=== PATIENT | male | born 1970 | race Hispanic/Latino ===

== ENCOUNTER 2018-11-22 14:55 | Outpatient (RCR) | payer OTHER | END 2018-11-24 | LOC: PT 14:55 | PROVIDERS: ATTEND Specialist | DX: S33.5XXA Sprain of ligaments of lumbar spine, initial encounter (principal) ==

== ENCOUNTER 2018-12-23 14:43 | Outpatient (RCR) | payer OTHER | END 2018-12-24 | LOC: PT 14:43 | PROVIDERS: ATTEND Specialist | DX: S33.5XXA Sprain of ligaments of lumbar spine, initial encounter (principal); S33.9XXD Sprain of unspecified parts of lumbar spine and pelvis, subsequent encounter; R26.2 Difficulty in walking, not elsewhere classified; M62.81 Muscle weakness (generalized); M53.86 Other specified dorsopathies, lumbar region ==

== ENCOUNTER → 2019-01-24 | Outpatient (RCR) | payer OTHER | LOC: PT 12-26 16:00 | PROVIDERS: ATTEND Specialist | DX: S33.5XXA Sprain of ligaments of lumbar spine, initial encounter (principal); S33.9XXD Sprain of unspecified parts of lumbar spine and pelvis, subsequent encounter; M53.86 Other specified dorsopathies, lumbar region; R26.2 Difficulty in walking, not elsewhere classified; M62.81 Muscle weakness (generalized) ==

== ENCOUNTER 2019-01-27 15:57 | Outpatient (RCR) | payer OTHER | END 2019-02-23 | LOC: PT 15:57 | PROVIDERS: ATTEND Specialist | DX: S33.5XXD Sprain of ligaments of lumbar spine, subsequent encounter (principal); S33.9XXD Sprain of unspecified parts of lumbar spine and pelvis, subsequent encounter; R26.2 Difficulty in walking, not elsewhere classified; M62.81 Muscle weakness (generalized); M53.86 Other specified dorsopathies, lumbar region ==

== ENCOUNTER 2019-05-05 15:41 | Outpatient (RCR) | payer OTHER | END 2019-05-26 | LOC: PT 15:41 | PROVIDERS: ATTEND Specialist | DX: M79.604 Pain in right leg (principal); M17.11 Unilateral primary osteoarthritis, right knee; S33.5XXA Sprain of ligaments of lumbar spine, initial encounter ==